=== PATIENT | female | born 1975 | race African-American/Black ===

== ENCOUNTER 2019-09-29 03:11 | Emergency (ER) | payer SELFPAY ==
[2019-09-29] MEDS ORDERED: NORMAL SALINE 1000 ML 1,000 ML IV ONE (03:41)
[2019-09-29] MEDS ORDERED: PANTOPRAZOLE SODIUM 40 MG VIAL IV ONE (03:41)
[2019-09-29] MEDS ORDERED: ONDANSETRON HCL INJ/PF 4 MG/2 ML SDV IV ONE (03:41)
[2019-09-29] MEDS ORDERED: MORPHINE SULFATE 10 MG/ML INJ IV ONE (03:43)
--- NOTE | 2019-09-29 03:43 | ER Document Report ---
ED GI/ - General Chief Complaint: Epigastric Pain Stated Complaint: STOMACH PROBLEMS Time Seen by Provider: 09/29/19 03:34 Primary Care Provider: [facility] [Provider Group] - Follow up in 3-5 days Notes: Patient is a 44-year-old female that comes emergency department for chief complaint of upper abdominal pain and nausea. She states this started 3 days ago the night after she had been celebrating and drank a lot of alcohol. She denies alcohol since, she denies regular alcohol. She denies vomiting, flank pain, fever. She states that her stool over the past day has looked very dark and possibly even black. She states that over the past couple of years she has been admitted to the hospital with "stomach problem". She states she thinks it was called gastroparesis but states that she had thrown up some blood and that is when she was admitted. She is on no current medications, she does smoke, smokes marijuana, denies recreational drugs otherwise. Denies any surgeries. Denies having an endoscopy. LMP just completed. TRAVEL OUTSIDE OF THE [place] IN LAST 30 DAYS: No - Related Data Allergies/Adverse Reactions: No Known Allergies Allergy (Verified 09/29/19 03:34) Past Medical History - General Information source: Patient - Social History Smoking Status: Never Smoker Frequency of alcohol use: Social Drug Abuse: None Lives with: Family Family History: Reviewed & Not Pertinent Patient has suicidal ideation: No Patient has homicidal ideation: No Surgical Hx: Negative - Immunizations Immunizations up to date: Yes Hx Diphtheria, Pertussis, Tetanus Vaccination: Yes Review of Systems - Review of Systems Constitutional: No symptoms reported EENT: No symptoms reported Cardiovascular: No symptoms reported Respiratory: No symptoms reported Gastrointestinal: See HPI Genitourinary: No symptoms reported Female Genitourinary: No symptoms reported Musculoskeletal: No symptoms reported Skin: No symptoms reported Hematologic/Lymphatic: No symptoms reported Neurological/Psychological: No symptoms reported Physical Exam - Vital signs Vitals: Temp Pulse Resp BP Pulse Ox 97.6 F 83 16 149/83 H 97 09/29/19 03:18 09/29/19 03:18 09/29/19 03:18 09/29/19 03:18 09/29/19 03:18 - Notes Notes: GENERAL: Alert, interacts well. No acute distress. Very thin. HEAD: Normocephalic, atraumatic. EYES: Pupils equal, round, and reactive to light. Extraocular movements intact. ENT: Oral mucosa moist, tongue midline. Oropharynx unremarkable. Airway patent. LUNGS: Clear to auscultation bilaterally, no wheezes, rales, or rhonchi. No respiratory distress. HEART: Regular rate and rhythm. No murmur ABDOMEN: Tender mainly in the epigastric and left upper quadrant areas, mildly tender in the right upper quadrant. Mid to lower abdomen is completely benign. No guarding, rigidity, or distention. Bowel sounds present. GENITOURINARY: Deferred EXTREMITIES: Moves all 4 extremities spontaneously. No edema, normal radial and dorsalis pedis pulses bilaterally. No cyanosis. BACK: no cervical, thoracic, lumbar midline tenderness. No saddle anesthesia, normal distal neurovascular exam. Moves all extremities in full range of motion. NEUROLOGICAL: Alert and oriented x3. Normal speech. Cranial nerves II through XII grossly intact. PSYCH: Normal affect, normal mood. SKIN: Warm, dry, normal turgor. No rashes or lesions noted. Course - Re-evaluation Re-evalutation: Patient has epigastric and left upper quadrant tenderness with mild right upper quadrant tenderness. Her reported symptoms and symptoms specifically after becoming intoxicated 1 night recently are suggestive of gastritis. CBC, chemistry, lipase unremarkable. test is negative. Stool is negative for blood. Patient was given Protonix, nausea medication, IV fluids. Discussed results with patient, she is requesting that we do an ultrasound additionally after discussion to rule out other causes of epigastric pain, I feel this is appropriate based on her worsening pain. Ultrasound is normal. On reevaluation patient states she is feeling much improved. She is able to tolerate p.o. without difficulty. Clinical picture is consistent with gastritis. Discussed treatment for this, recommendations, initial primary care follow-up and possible gastroenterology follow-up afterwards, and return precautions at length. Patient states appreciation and agreement. Stable at time of discharge. - Vital Signs Vital signs: Temp Pulse Resp BP Pulse Ox 98.2 F 83 18 110/65 99 09/29/19 05:46 09/29/19 03:18 09/29/19 05:46 09/29/19 05:46 09/29/19 05:46 - Laboratory Result Diagrams: 09/29/19 04:00 09/29/19 04:00 Laboratory results interpreted by me: 12/22/19 04:00 Sodium 135.7 L Carbon Dioxide 21 L Total Bilirubin 1.4 H Discharge - Discharge Clinical Impression: Epigastric pain, Nausea Condition: Stable Disposition: HOME, SELF-CARE Additional Instructions: Your symptoms and examination indicate gastritis/esophagitis (inflammation of your upper gastrointestinal tract). Take Phenergan for nausea, take Carafate and Pepcid as prescribed to help treat this, you can take additional Rolaids, Tums, Maalox, etc. if needed. You can take Tylenol for pain. Avoid NSAIDs, alcohol, smoking, caffeine, spicy food (these all worsen the inflammation). Start with clear fluids, progress to bland diet. You can resume a normal diet after your abnormal symptoms are gone. Follow-up with primary care/gastroenterology for additional evaluation and treatment including possible H. pylori testing. Return if you worsen including uncontrolled vomiting, vomiting blood, black stools, severe pain, fever of 100.4 or greater, or any other concerning or worsening symptoms. Prescriptions: Sucralfate [Carafate 1 gm Tablet] 1 gm PO QID #20 tablet Famotidine [Pepcid 20 mg Tablet] 20 mg PO BID #20 tablet Promethazine HCl [Phenergan 25 mg Tablet] 25 mg PO Q6H PRN #15 tablet PRN Reason: Forms: Return to Work Referrals: [facility] [Provider Group] - Follow up in 3-5 days
[2019-09-29 04:13] LABS: ABSOLUTE BASOPHILS # (AUTO) 0.1 10^3/uL (0.0-0.2); ABSOLUTE EOSINOPHILS # (AUTO) 0.1 10^3/uL (0.0-0.6); ABSOLUTE LYMPHOCYTES (AUTO) 2.4 10^3/uL (0.5-4.7); ABSOLUTE MONOCYTES (AUTO) 0.5 10^3/uL (0.1-1.4); ABSOLUTE NEUT (AUTO) 2.9 10^3/uL (1.7-8.2); EOSINOPHILS % (AUTO) 1.3 % (0-6); HEMATOCRIT 37.7 % (36.0-47.0); HEMOGLOBIN 13.3 g/dL (12.0-15.5); LYMPHOCYTES % (AUTO) 40.7 % (13-45); MEAN CORPUSCULAR HGB CONC 35.3 g/dL (32.0-36.0); MEAN CORPUSCULAR VOLUME 93 fl (80-97); MONOCYTES % (AUTO) 8.4 % (3-13); PLATELET COUNT 289 10^3/uL (150-450); RED BLOOD COUNT 4.04 10^6/uL (3.72-5.28); RED CELL DISTRIBUTION WIDTH 13.3 % (11.5-14.0); SEGMENTED NEUTROPHILS % (AUTO) 48.6 % (42-78); TOTAL CELLS COUNTED % (AUTO) 100 %; WHITE BLOOD COUNT 5.9 10^3/uL (4.0-10.5)
[2019-09-29 04:32] LABS: ALBUMIN 4.2 g/dL (3.5-5.0); ALKALINE PHOSPHATASE 61 U/L (38-126); ANION GAP 10 (5-19); ASPARTATE AMINO TRANSFERASE 34 U/L (14-36); BILIRUBIN,DIRECT 0.1 mg/dL (0.0-0.4); BILIRUBIN,TOTAL 1.4 mg/dL (0.2-1.3); BLOOD UREA NITROGEN 12 mg/dL (7-20); CALCIUM 8.8 mg/dL (8.4-10.2); CARBON DIOXIDE 21 mmol/L (22-30); CHLORIDE 105 mmol/L (98-107); GLUCOSE 96 mg/dL (75-110); TOTAL PROTEIN 7.1 g/dL (6.3-8.2)
--- NOTE | 2019-09-29 05:36 | RADIOLOGY REPORT (SQ) ---
EXAM DESCRIPTION: US ABDOMEN LIMITED COMPLETED DATE/TME: 09/29/2019 04:42 CLINICAL HISTORY: 44 years Female, epigastric pain, nausea Comparison: None. LIMITATIONS: None. FINDINGS: Gallbladder, negative sonographic Clark's test, liver, a 0.4-cm diameter common bile duct, no intrahepatic ductal dilation, hepatopetal patent flow of the portal vein, 11-cm right kidney, pancreas, visualized vasculature/abdominal aorta, and no significant ascites appear otherwise unremarkable. IMPRESSION: Normal RUQ-Abdominal Sonogram.
[2019-09-29 05:53] VITALS: BP 110/65
== END 2019-09-29 06:06 | disposition home or self-care (01) ==
LOC: ER 03:11
DX: R10.13 Epigastric pain (principal); R11.0 Nausea; R19.5 Other fecal abnormalities; R10.816 Epigastric abdominal tenderness; R10.812 Left upper quadrant abdominal tenderness; R10.811 Right upper quadrant abdominal tenderness
CPT/HCPCS: 99284; 96361; 96374; 96375; 36415; 83690; 84703; 85025; 80053; 76705; J2270; C9113; J2405; J7030